=== PATIENT | male | born 1975 | race Caucasian/White ===

== ENCOUNTER 2016-09-06 21:08 | Emergency (ER) | payer MEDICAID, MEDICARE ==
[~2016-09-06] VITALS: Ht 185.4 cm; Wt 113.4 kg
[2016-09-06 21:46] VITALS: BP 117/57
--- NOTE | 2016-09-06 21:47 | NUR ---
PT AMBUALTORY TO ER BED 2 C/O REDNESS IN EYE X 2 DAYS. DENIES PAIN, IRRITATION, CHANGE IN VISION. PT AOX4 RR EVEN AND UNLABORED. NO SOB NOTED. NAD NOTED. NO NVD AT THIS TIME. PT WAITING FOR MD BARBOUR.
--- NOTE | 2016-09-06 22:07 | NUR ---
DR. FAULKNER AT BEDSIDE FOR EVAL.
== END 2016-09-06 22:19 | disposition home or self-care (01) ==
LOC: ER 21:08
DX: H11.32 Conjunctival hemorrhage, left eye (principal); F32.9 Major depressive disorder, single episode, unspecified; G40.909 Epilepsy, unspecified, not intractable, without status epilepticus
CPT/HCPCS: A4606; Z7610

== ENCOUNTER 2018-01-26 13:30 | Emergency (ER) | payer MEDICARE, MEDICAID ==
[~2018-01-26] VITALS: Ht 177.8 cm; Wt 68.0 kg
[2018-01-26] MEDS ORDERED: ONDANSETRON 4 MG TAB.RAPDIS PO ONE (14:30)
[2018-01-26] MEDS ORDERED: ACETAMINOPHEN ES 500 MG TABLET PO ONE (14:30)
[2018-01-26 14:31] LABS: BASOPHILS # (AUTO) 0.2 /CMM (0.0-0.2); BASOPHILS % (AUTO) 1.3 % (0.0-2.0); EOSINOPHILS % (AUTO) 1.3 % (0.0-6.0); HEMATOCRIT 43 % (39-51); HEMOGLOBIN 15.7 g/dL (13.5-17.5); LYMPHOCYTES # (AUTO) 1.5 /CMM (0.8-4.8); LYMPHOCYTES % (AUTO) 7.8 % (20.0-44.0); MEAN CORPUSCULAR HGB CONC 36 g/dl (31.0-36.0); MEAN CORPUSCULAR VOLUME 100 fL (80-96); MONOCYTES # (AUTO) 1.4 /CMM (0.1-1.30); MONOCYTES % (AUTO) 7.3 % (2.0-12.0); NEUTROPHILS # (AUTO) 15.4 /CMM (1.8-8.9); NEUTROPHILS % (AUTO) 82.3 % (43.0-81.0); PLATELET COUNT (AUTO) 318 /CMM (150-450); RDW COEFFICIENT OF VARIATION 14.6 (11.5-15.0); RED BLOOD CELL COUNT(AUTO) 4.34 MIL/uL (4.5-6.0); WHITE BLOOD COUNT (AUTO) 18.7 K/uL (4.3-11.0)
[2018-01-26] MEDS ORDERED: ACETAMINOPHEN ES 500 MG TABLET ONE (14:34)
[2018-01-26] MEDS ORDERED: ONDANSETRON 4 MG TAB.RAPDIS ONE (14:34)
[2018-01-26 14:41] LABS: CALCIUM, SERUM 9.3 mg/dL (8.5-10.1); CARBON DIOXIDE 26 mmol/L (21-32); CHLORIDE 106 mmol/L (98-107); CREATININE 0.9 mg/dL (0.6-1.3); GLUCOSE 123 mg/dL (74-106); POTASSIUM 4.1 mmol/L (3.5-5.1); SODIUM SERUM 141 mmol/L (136-145); UREA NITROGEN, BLOOD 12 mg/dL (7-18)
--- NOTE | 2018-01-26 14:42 | NUR ---
pt unable to give enough urine sample, will try again in 15mins.
[2018-01-26 14:44] LABS: INR 1.04 (0.85-1.15)
[2018-01-26 14:47] LABS: ALANINE AMINOTRANSFERASE 31 U/L (12-78); ALBUMIN 4.7 g/dL (3.4-5.0); ALKALINE PHOSPHATASE 83 U/L (46-116); ASPARTATE AMINOTRANSFERASE 23 U/L (15-37); BILIRUBIN,DIRECT 0.2 mg/dL (0.0-0.2); BILIRUBIN,TOTAL 1.4 mg/dL (0.2-1.0); LIPASE 119 U/L (73-393); TOTAL PROTEIN, SERUM 7.9 g/dL (6.4-8.2)
[2018-01-26 14:49] LABS: TROPONIN I < 0.017 ng/mL (0.00-0.056)
[2018-01-26 16:15] LABS: APPEARANCE,URINE Slightly Cloudy (CLEAR); BILIRUBIN,URINE MODERATE (NEGATIVE); BLOOD, URINE Negative Ery/uL (NEGATIVE); COLOR,URINE Brown (YELLOW); KETONES,URINE 15 (NEGATIVE); LEUKOCYTE ESTERASE ,URINE Negative (NEGATIVE); NITRITE, URINE Negative (NEGATIVE); PH,URINE 5.5 (5.0-8.0); PROTEIN,URINE 100 mg/dl (NEGATIVE); UGLUCOSE Negative (NEGATIVE)
[2018-01-26 16:40] LABS: BACTERIA,URINE Moderate /HPF (None Seen); CALCIUM OXALATE CRYSTALS,UR Rare /HPF (None Seen); MUCUS,URINE Few /LPF (None Seen); RBC,URINE 0-2 /HPF (0-2); SQUAMOUS EPITHELIAL CELL,UR Few /HPF (None Seen); WBC,URINE 0-2 /HPF (0-3)
[2018-01-26 17:14] VITALS: BP 128/75
--- NOTE | 2018-01-26 17:15 | NUR ---
Patient discharged to home in stable condition. Written and verbal after care instructions given. Patient verbalizes understanding of instruction.
== END 2018-01-26 17:18 | disposition home or self-care (01) ==
LOC: ER 13:33
DX: R11.2 Nausea with vomiting, unspecified (principal); I38 Endocarditis, valve unspecified; I49.8 Other specified cardiac arrhythmias; G40.909 Epilepsy, unspecified, not intractable, without status epilepticus; F32.9 Major depressive disorder, single episode, unspecified
CPT/HCPCS: 36415; 71045; 74176; 80048; 80076; 81001; 83690; 83880; 84484; 85025; 85730; 87086; 93005; 99285; A4606; Q0162; 81000-TC; Z7610